=== PATIENT | female | born 2000 | race Caucasian/White ===

== ENCOUNTER 2020-06-24 12:42 | Outpatient (RCR) | payer BC, SELFPAY | END 2020-09-08 11:39 | disposition home or self-care (01) | LOC: ANHDMC 12:42 | PROVIDERS: PCP Obstetrics & Gynecology; Visit Provider Obstetrics & Gynecology | DX: O24.410 Gestational diabetes mellitus in pregnancy, diet controlled (principal); Z71.89 Other specified counseling; Z3A.34 34 weeks gestation of pregnancy | CPT/HCPCS: G0108 ==

== ENCOUNTER 2020-07-27 07:43 | Outpatient (RCR) | payer BC, SELFPAY ==
[2020-07-16 10:50] VITALS: BP 124/75; PULSE 103
[2020-07-20 09:51] VITALS: BP 120/75; PULSE 104
[2020-07-23 10:07] VITALS: BP 111/74; PULSE 113
--- NOTE | ~2020-07-27 | US_ITS ---
EXAMINATION: US OB BPP wo non-stress EXAM DATE: 07/23/2020 10:31 INDICATION: Gestational diabetes. 3rd trimester. TECHNIQUE: Pelvic obstetrical transabdominal sonogram was performed by a technologist. There are mu ltiple grayscale and Doppler images available for interpretation. Comparison is made to prior examina tion from 07/16/2020. FINDINGS: There is a single fetus identified in vertex presentation with a heart rate of 133 beats pe r minute. The placenta is located in the anterior position. There is no sonographic evidence of retr oplacental hemorrhage identified. BIOPHYSICAL PROFILE (performed by the technologist) breathing (30 sec sustained breathing in 30 minutes): 2 out of 2 movement (3 gross body movements in 30 minutes): 2 out of 2 tone (one episode of mcyydql-rpsafapou-fmqetme limb movement): 2 out of 2 Amniotic fluid pocket (2 cm): 2 out of 2 Total score: 8 out of 8 IMPRESSION: 1. Single fetus with heart rate of 133 bpm. 2. Normal biophysical profile score of 8 out of 8. Reviewed, dictated and finalized at location A. R
--- NOTE | ~2020-07-27 | US_ITS ---
EXAMINATION: US OB BPP wo non-stress DATE: 07/16/2020 10:41 INDICATION: Gestational diabetes. Third trimester. TECHNIQUE: Real-time pelvic ultrasound was performed. COMPARISON: None. FINDINGS: There is a single living fetus in vertex presentation. The placenta is fundal. heart rate is 1 38 beats per minute (bpm). Biophysical profile performed by the technologist: breathing (30 sec sustained breathing in 30 minutes): 2 out of 2 movement (3 gross body movements in 30 minutes): 2 out of 2 tone (one episode of twnfkas-ueubwcazo-somgste limb movement): 2 out of 2 Amniotic fluid pocket (2 cm): 2 out of 2 Total score: 8 out of 8 IMPRESSION: 1. Single living fetus in vertex presentation. 2. Biophysical profile 8 out of 8. Reviewed, dictated and finalized at location A. K STRIKER
[2020-07-27 08:21] VITALS: BP 119/65; PULSE 96
== END 2020-07-30 07:38 | disposition home or self-care (01) ==
LOC: ANHOBOP 07:43
PROVIDERS: Visit Provider Obstetrics & Gynecology
DX: O24.419 Gestational diabetes mellitus in pregnancy, unspecified control (principal); Z3A.37 37 weeks gestation of pregnancy; Z3A.38 38 weeks gestation of pregnancy; Z3A.39 39 weeks gestation of pregnancy
CPT/HCPCS: 59025; 76819

== ENCOUNTER 2020-07-28 15:58 | Inpatient (IN) | payer BC, SELFPAY ==
--- OUTSIDE RECORDS SUMMARY | 2020-07-28 16:04 | XMS_ITS | Encounter Summary ---
:2000 Author Reason for Visit return OB visit Assessment and Plan 1. Gestational diabetes mellitus ? cervical ripening and ragini ction of labor (SURG) Discussion Note: None recorded.Patient educational handouts: No information available. Plan of Care Reminders Provider Appointments None ? ? recorded. Lab None ? ? recorded. Referral None ? ? recorded. Procedures None ? ? recorded. Surgeries Cervical [facility] Ripening and Induction 07/27/2020 [facility] (One Call of Labor (SURG) Scheduling) Imaging None ? ? recorded. Medications Name Start Date ? ? OneTouch Delica Plus Lancet 33 gauge ? USE DIRECTED TO TEST BLOOD SUGARS TID OneTouch Ultra Blue Test Strip ? USE DIRECTED TO TEST THREE TIMES DAILY OneTouch Ultra2 Meter ? USE UTD OneTouch UltraSoft Lancets ? UTD TEST BLOOD SUGARS TID Prescription - Prior Authorization Request ? USE DIRECTED Notes: otc / tums prn/ p epcid Medications Administered None recorded. Vitals Weight Blood Pressure 210.8 lbs 118/78 mm[Hg] Results Lab Results None recorded. Allergies Code Code System Name Reaction Severity Onset
--- OUTSIDE RECORDS SUMMARY | 2020-07-28 16:04 | XMS_ITS | Encounter Summary ---
:2000 Author Reason for Visit return OB visit Assessment and Plan 1. Routine care ? streptococcus group B, cul ture, unspecified specimen Discussion Note: None recorded.Patient educational handouts: No information available. Plan of Care Reminders Provider Appointments None recorded. ? ? Lab Streptococcus [facility] Group B, Culture, 07/02/2020 [facility] (Lab) Unspecified Specimen Referral None recorded. ? ? Procedures None recorded. ? ? Surgeries None recorded. ? ? Imaging None recorded. ? ? Medications Name Start Date ? ? OneTouch [...] p epcid Medications Administered None recorded. Vitals Height Weight BMI Blood Pressure 5 ft 2 in 207 lbs 37.9 kg/m2 128/80 mm[Hg] Results Lab Results None recorded. Allergies
--- OUTSIDE RECORDS SUMMARY | 2020-07-28 16:04 | XMS_ITS | Encounter Summary ---
:2000 Author Reason for Visit return OB visit Assessment and Plan 1. Routine care Discussion Note: None recorded.Patient educational handouts: No information available. Plan of Care Reminders Provider Appointments None ? ? recorded. Lab None ? ? recorded. Referral None ? ? recorded. Procedures None ? ? recorded. Surgeries None ? ? recorded. Imaging None ? ? recorded. Medications Name [...] Administered None recorded. Vitals Weight Blood Pressure 202.5 lbs 118/72 mm[Hg] Results Lab Results None recorded. Allergies Code Code System Name Reaction Severity Onset NKDA ? ? ? Notes: Omicef - hives - nm Problems Name Sta
--- OUTSIDE RECORDS SUMMARY | 2020-07-28 16:04 | XMS_ITS | Encounter Summary ---
:2000 Author Reason for Visit return OB visit Assessment and Plan 1. Gestational diabetes mellitus ? non-stress test ? US, obstetric, biophysical profile Discussion Note: None recorded.Patient educational handouts: No information available. Plan of Care Reminders Provider Appointments None recorded. ? ? Lab None recorded. ? ? Referral None recorded. ? ? Procedures None recorded. ? ? Surgeries None recorded. ? ? Imaging Non-stress [place] Test 07/15/2020 Imaging Center ? US, Obstetric, [facility] Biophysical Profile 07/15/2020 Imaging [facility] er Medications Name Start Date ? ? OneTouch [...] Medications Administered None recorded. Vitals Height Weight Blood Pressure 5 ft 2 in
--- OUTSIDE RECORDS SUMMARY | 2020-07-28 16:04 | XMS_ITS | Encounter Summary ---
:2000 Author Reason for Visit return OB visit Assessment and Plan 1. Gestational diabetes mellitus ? US, obstetric, follow-up Discussion Note: None recorded.Patient educational handouts: No information available. Plan of Care Reminders Provider Appointments None ? ? recorded. Lab None ? ? recorded. Referral None ? ? recorded. Procedures None ? ? recorded. Surgeries None ? ? recorded. Imaging US, 06/18/2020 [facility] Obstetric, [facility] (One Ca ll Follow-up Scheduling) Medications Name Start Date ? ? OneTouch [...] Weight Blood Pressure 5 ft 2 in 208 lbs 114/70 mm[Hg] Results Lab Results None recorded. Allergies Code Code System Name Reaction Severity Onset
--- OUTSIDE RECORDS SUMMARY | 2020-07-28 16:04 | XMS_ITS | Encounter Summary ---
:2000 Author Reason for Visit return OB visit Assessment and Plan 1. Routine care ? glucose tolerance test, ge stational, 1-hour - nonfasting OB ? HIV (1+2) Ab screen, serum ? hemoglobin + hematocrit, b lood Discussion Note: None recorded.Patient educational handouts: No information available. Plan of Care Reminders Provider Appointments None recorded. ? ? Lab Glucose [place] [facility] Tolerance Test, 05/14/2020 [facility] ( Lab) Gestational, 1-Hour ? HIV (1+2) Ab [facility] Screen, Serum 05/14/2020 [facility] ( Lab) ? Hemoglobin + [facility] Hematocrit, Blood 05/14/2020 [facility] (Lab) Referral None recorded. ? ? Procedures None recorded. ? ? Surgeries None recorded. ? ? Imaging None recorded. ? ? Medications Name Start Date ? ? OneTouch Delica Plus Lancet 33 gauge ? USE DIRECTED TO TEST BLOOD SUGARS TID OneTouch Ultra Blue Test Strip ? USE DIRECTED TO TEST THREE TIMES DAILY OneTouch Ultra2 Meter ? USE UTD OneTo
--- OUTSIDE RECORDS SUMMARY | 2020-07-28 16:04 | XMS_ITS | Encounter Summary ---
:2000 Author Reason for Visit return OB visit Assessment and Plan 1. Gestational diabetes mellitus Discussion Note: None recorded.Patient educational handouts: No [...] Weight Blood Pressure 5 ft 2 in 210 lbs 132/84 mm[Hg] Results Lab Results None recorded. Allergies Code Code System Name Reaction Severity Onset NKDA ? ? ? Notes: Omicef - hives - nm Problems
--- OUTSIDE RECORDS SUMMARY | 2020-07-28 16:04 | XMS_ITS ---
:2000 Author Care Team Providers Name Role Phone Saad Hawthorne Primary Care Provider Unavailable Allergies Code Code System Name Reaction Severity Status Onset NKDA ? Notes: Omicef - hives - nm Medications Name Status Start Date Stop Date ? ? OneTouch Delica Plus Lancet 33 gauge Active ? Not available USE DIRECTED TO TEST BLOOD SUGARS TID OneTouch Ultra Blue Test Strip Active ? N ot available USE DIRECTED TO TEST THREE TIMES DAILY OneTouch Ultra2 Meter Active ? Not availa ble USE UTD OneTouch UltraSoft Lancets Active ? Not a vailable Notes: otc / tums prn/ p epcid Problems Name Status Onset Date Source ? Active 01/07/2020 ? Procedures Date Name Performed by ? 01/07/2020 US, Obstetric, Transvaginal [facility] (One Call Scheduling) [address], [place] [address] ([address]) 03/02/2020 US, Obstetric, Maternal [facility] (One Call Scheduling) Evaluation + Anatomy [address], [place] [address] ([address]) 06/18/2020 US, Obstetric, Follow-up [facility] (One Call Scheduling) [address], [place] [address] ([address])
[2020-07-28 16:28] VITALS: BP 104/48; PULSE 129
[2020-07-28 16:30] VITALS: BP 109/61; PULSE 125
[2020-07-28 16:35] VITALS: BMI 37.7
[2020-07-28 17:10] VITALS: TEMP 36.7
[2020-07-28] MEDS: DINOPROSTONE 10 MG VAG INSERT VAGINAL (17:11)
[2020-07-28 17:26] LABS: Basophils Percent Auto 0.2 % (0.2-1.2); Eosinophils Absolute Auto 0.1 K/mm3 (0-0.3); Eosinophils Percent Auto 0.7 % (0-4.4); Hematocrit 33.8 % (37.0-47.0); Hemoglobin 11.2 g/dL (12.0-15.0); Immature Granulocyte Absolute 0.05 K/mm3 (0.00-0.031); Immature Granulocyte Percent A 0.4 % (0-0.5); Lymphocytes Absolute Auto 1.35 K/mm3 (0.9-3.2); Mean Corpuscular HGB Conc 33.1 g/dl (32-36); Mean Corpuscular Volume 84.5 fl (80-100); Mean Platelet Volume 10.2 fl (7.4-10.4); Monocytes Absolute Auto 0.6 K/mm3 (0.1-0.6); Monocytes Percent Auto 5.1 % (2.6-8.5); Neutrophils Absolute Auto 10.2 K/mm3 (1.3-6.7); Neutrophils Percent Auto 82.6 % (45.5-73.1); Platelet Count Result 271 k/mm3 (150-375); Red Cell Distribution Width 15.5 % (11.5-14.5); White Blood Count 12.3 K/mm3 (4.5-10.0)
[2020-07-28 17:37] LABS: Glucose 89 mg/dL (65-105)
[2020-07-28 17:48] VITALS: BP 121/79; PULSE 101
--- NOTE | 2020-07-28 20:59 | PM.IMHP ---
H&P: HPI History of Present Illness Date/Time: 07/28/20 20:59 Chief Complaint: IOL for GDM Narrative: Ana Falk is a 20 yo @ 39.4wks admitted for IOL due to A1GDM. Her sugars have been decently well controlled until recently been having random sugars in the 170's. She reports good movement. No LOF, VB. She has had regular care. complicated by: - A1GDM; normal growth (EFW 6lb 13oz on 07/14/20) - Varicella and CMV non-immune Review of Systems Constitutional: Constitutional: Denies fever(s) Eyes: Eyes: Denies blurry vision Cardiovascular: Cardiovascular: Denies chest pain and Denies palpitations Respiratory: Respiratory: Denies cough and Denies dyspnea Gastrointestinal: Gastrointestinal: Denies nausea and Denies vomiting Genitourinary: Genitourinary: Denies vaginal discharge Neurologic: Denies headache(s) Psychiatric: Psychiatric: Denies anxiety and Denies depression [facility] Family History Family History Grandparent Epilepsy Diabetes mellitus Heart disease Lung cancer Chronic obstructive pulmonary disease Father Alcohol abuse Social History Social History Smoking status: Never smoker Additional smoking assessment comments: mother and brother smoke inside the house Substance use: never Spiritual care concerns: No Meds Home Medications and Allergies Home Medications Medication Instructions Recorded Confirmed Type prenat.vits,deanne,[id number] 1 tablet PO DAILY 06/30/20 07/28/20 History [ #2] Allergies Allergy/AdvReac Type Severity Reaction Status Date / Time cefdinir Allergy RASH Verified 07/28/20 17:12 Vital Signs Vital Signs - 24 hr 07/28/20 16:28 07/28/20 16:30 07/28/20 17:10 Temperature 36.7 C Pulse Rate 129 H 125 H Blood Pressure 104/48 L 109/61 07/28/20 17:48 Temperature Pulse Rate 101 H Blood Pressure 121/79 Exam Const: General: cooperative, healthy appearing and comfortable Resp: Effort & Inspection: normal respiratory effort and able to speak in complete sentences Cardio: Rate: regular rate GI: GI Palp: No abdominal tenderness and Yes Soft to palpation : Other: FHT's: 130's/ mod cristy/ + accels/ no decels - cat 1 Hiram: irritability Membranes: intact; GBS neg Presentation: cephalic Cervix: 1/thick/high Skin: General skin exam: normal color Neuro: General: patient oriented x3 Psych: Appearance: grossly normal Affect: normal affect Attitude: cooperative H&P: Results Labs Labs: Short CBC 07/28/20 Range/Units 16:24 WBC 12.3 H (4.5-10.0) K/mm3 Hgb 11.2 L (12.0-15.0) g/dL Hct 33.8 L (37.0-47.0) % Plt Count 271 (150-375) k/mm3 BMP 07/28/20 17:17 Glucose 89 Assessment and Plan Assessment and plan (1) Gestational diabetes mellitus (GDM) affecting first : Code(s): O24.419 - Gestational diabetes mellitus in , unspecified control Status: Acute (2) Encounter for induction of labor: Code(s): Z34.90 - Encounter for supervision of normal , unspecified, unspecified trimester Status: Acute Additional Plan - Admit for cervidil induction overnight, plan for AROM/pitocin tomorrow - Intermittent monitoring w/ cervidil; category 1 and reassuring, continuous of ROM/pitocin - FS per protocol - Anesthesia consult PRN pain - Labs/US reviewed; GBS negative
--- NOTE | 2020-07-28 21:15 | WPDHPUPDATE1 ---
History and Physical Update Update Date/Time: 07/28/20 21:15 History and Physical has been reviewed, including an updated exam of the patient. There are NO changes in the patient's condition. Risks, benefits, and alternatives have been discussed and questions answered. Patient agrees to proceed with procedure.
[2020-07-28 21:20] VITALS: TEMP 37.3
[2020-07-29] VITALS (131 sets, daily range): BP systolic 86–139; BP diastolic 49–99; PULSE 81–165; RESP 20; TEMP 36.6–37.3; O2SAT 97–100
[2020-07-29 02:20] LABS: Glucose Point of Care 90 (65-105)
[2020-07-29] MEDS: LACTATED RINGERS 1,000 ML 125 ML IV CONT ×2 (05:35→15:55)
[2020-07-29] MEDS: OXYTOCIN 30 UNITS/NS 500 ML 30 UNITS/500 ML BAG 6 UNITS IV CONT (05:46)
[2020-07-29 05:55] LABS: Glucose Point of Care 79 (65-105)
[2020-07-29 09:50] LABS: Rapid Plasma Reagin Non-Reactive (NonReactive)
[2020-07-29 10:12] LABS: Glucose Point of Care 81 (65-105)
--- NOTE | 2020-07-29 12:37 | PM.OBPNLAB ---
Pain Control Date/time seen: 07/29/20 12:37 Pain control: tolerating well Pelvic Exam Dilation (cm): 3 (.5) Effacement (%): 70 station: -2 Amniotic membrane status: Ruptured (AROM, thick mec @ 1230) Contractions Monitor mode: External Contraction frequency: 2 Contraction pattern: Regular Contraction intensity: Moderate Status status: Category ll Comments: 150's/ mod cristy/ + accels/ 2 prolonged decels noted to 120's Assessment and Plan Pitocin rate (mU/min): 10 Assessment: induction ongoing Plan: continuous present management Comments: - IOL; latent labor, making good progress, now 3.5/70/-2 - Decel noted after ROM; spontaneous resolution; thick mec noted -- monitoring decels closely; pt continues to have good variability - Cesario regularly - Epidural PRN pain - Sugars normal 70-90's
[2020-07-29] MEDS: fentaNYL CITRATE INJ (*CRX) 100 MCG/2 ML VIAL 50 MCG IV PUSH ×2 (13:09→14:16)
--- NOTE | 2020-07-29 13:10 | WPDANESEPP ---
Anes - Eval Pre Procedure Procedure: Labor epidural Date/Time: 07/29/20 13:10 Surgeon: lucita Preop Diagnosis: Abd pain with contractions Pre Op Diagnosis: IOL Patient Data Age: 20 Gender: F Height: 5 ft 2 in Weight: 93.5 kg Last Vital Signs Temp 98.2 F 07/29/20 10:00 Pulse 110 H 07/29/20 12:30 BP 113/99 H 07/29/20 12:30 Allergies Allergy/AdvReac Type Severity Reaction Status Date / Time cefdinir Allergy RASH Verified 07/28/20 17:12 Home Medications Medication Instructions Recorded Confirmed Type prenat.vits,deanne,[id number]-[id number] 1 tablet PO DAILY 06/30/20 07/28/20 History [ #2] Laboratory Tests 07/28/20 07/28/20 07/28/20 16:24 16:24 16:24 WBC 12.3 K/mm3 H K/mm3 (4.5-10.0) RBC 4.00 M/mm3 L M/mm3 (4.2-5.4) Hgb 11.2 g/dL L g/dL (12.0-15.0) Hct 33.8 % L % (37.0-47.0) MCV 84.5 fl fl (80-100) MCH 28.0 pg pg (26-34) MCHC 33.1 g/dl g/dl (32-36) RDW 15.5 % H % (11.5-14.5) Plt Count 271 k/mm3 k/mm3 (150-375) MPV 10.2 fl fl (7.4-10.4) Immature Gran % (Auto) 0.4 % % (0-0.5) Neut % (Auto) 82.6 % H % (45.5-73.1) Lymph % (Auto) 11.0 % L % (18.3-44.2) [place] % (Auto) 5.1 % % (2.6-8.5) Eos % (Auto) 0.7 % % (0-4.4) Baso % (Auto) 0.2 % % (0.2-1.2) Lymph # (Auto) 1.35 K/mm3 K/mm3 (0.9-3.2) [place] # (Auto) 0.6 K/mm3 K/mm3 (0.1-0.6) Eos # (Auto) 0.1 K/mm3 K/mm3 (0-0.3) Baso # (Auto) 0.0 K/mm3 K/mm3 (0.0-0.1) Abs Immat Gran (auto) 0.05 K/mm3 H K/mm3 (0.00-0.031) Absolute Neuts (auto) 10.2 K/mm3 H K/mm3 (1.3-6.7) Absolute Nucleated RBC 0.0 K/mm3 K/mm3 (0.0-0.012) Nucleated RBC % 0.0 % % (0.0-0.2) Glucose POC Capillary Glucose RPR Non-reactive (NonReactive) Blood Type O Positive Antibody Screen Negative 07/28/20 07/28/20 07/29/20 17:17 21:21 05:49 WBC RBC Hgb Hct MCV MCH MCHC RDW Plt Count MPV Immature Gran % (Auto) Neut % (Auto) Lymph % (Auto) [place] % (Auto) Eos % (Auto) Baso % (Auto) Lymph # (Auto) [place] # (Auto) Eos # (Auto) Baso # (Auto) Abs Immat Gran (auto) Absolute Neuts (auto) Absolute Nucleated RBC Nucleated RBC % Glucose 89 mg/dL mg/dL (65-105) POC Capillary Glucose 90 mg/dl mg/dl 79 mg/dl mg/dl (65-105) (65-105) RPR Blood Type Antibody Screen 07/29/20 10:04 WBC RBC Hgb Hct MCV MCH MCHC RDW Plt Count MPV Immature Gran % (Auto) Neut % (Auto) Lymph % (Auto) [place] % (Auto) Eos % (Auto) Baso % (Auto) Lymph # (Auto) [place] # (Auto) Eos # (Auto) Baso # (Auto) Abs Immat Gran (auto) Absolute Neuts (auto) Absolute Nucleated RBC Nucleated RBC % Glucose POC Capillary Glucose 81 mg/dl mg/dl (65-105) RPR Blood Type Antibody Screen Patient hx anesthesia problems: none Family hx anesthesia problems: none PMFSH Past Medical History Medical History Gestational diabetes mellitus (GDM) affecting first and not yet delivered Family History Family History Grandparent Epilepsy Diabetes mellitus Heart disease Lung cancer Chronic obstructive pulmonary disease Father Alcohol abuse Socia
--- NOTE | 2020-07-29 15:55 | WPDANESEPPF ---
Anes - Initial Pre Proc Eval Date/Time: 07/29/20 15:55 Surgeon: Saad Hawthorne MD Pre Op Diagnosis: IOL Patient Data Age: 20 Gender: F Height: 1.57 m Weight: 93.5 kg Last Vital Signs Temp 36.8 C 07/29/20 14:26 Pulse 150 H 07/29/20 15:30 BP 118/88 07/29/20 15:30 Allergies Allergy/AdvReac Type Severity Reaction Status Date / Time cefdinir Allergy RASH Verified 07/28/20 17:12 Home Medications Medication Instructions Recorded Confirmed Type prenat.vits,deanne,rpk-knhb-[id number] 1 tablet PO DAILY 06/30/20 07/28/20 History [ #2] Laboratory Tests 07/28/20 07/28/20 07/28/20 16:24 16:24 16:24 WBC 12.3 K/mm3 H K/mm3 (4.5-10.0) RBC 4.00 M/mm3 L M/mm3 (4.2-5.4) Hgb 11.2 g/dL L g/dL (12.0-15.0) Hct 33.8 % L % (37.0-47.0) MCV 84.5 fl fl (80-100) MCH 28.0 pg pg (26-34) MCHC 33.1 g/dl g/dl (32-36) RDW 15.5 % H % (11.5-14.5) Plt Count 271 k/mm3 k/mm3 (150-375) MPV 10.2 fl fl (7.4-10.4) Immature Gran % (Auto) 0.4 % % (0-0.5) Neut % (Auto) 82.6 % H % (45.5-73.1) Lymph % (Auto) 11.0 % L % (18.3-44.2) [place] % (Auto) 5.1 % % (2.6-8.5) Eos % (Auto) 0.7 % % (0-4.4) Baso % (Auto) 0.2 % % (0.2-1.2) Lymph # (Auto) 1.35 K/mm3 K/mm3 (0.9-3.2) [place] # (Auto) 0.6 K/mm3 K/mm3 (0.1-0.6) Eos # (Auto) 0.1 K/mm3 K/mm3 (0-0.3) Baso # (Auto) 0.0 K/mm3 K/mm3 (0.0-0.1) Abs Immat Gran (auto) 0.05 K/mm3 H K/mm3 (0.00-0.031) Absolute Neuts (auto) 10.2 K/mm3 H K/mm3 (1.3-6.7) Absolute Nucleated RBC 0.0 K/mm3 K/mm3 (0.0-0.012) Nucleated RBC % 0.0 % % (0.0-0.2) Glucose POC Capillary Glucose RPR Non-reactive (NonReactive) Blood Type O Positive Antibody Screen Negative 07/28/20 07/28/20 07/29/20 17:17 21:21 05:49 WBC RBC Hgb Hct MCV MCH MCHC RDW Plt Count MPV Immature Gran % (Auto) Neut % (Auto) Lymph % (Auto) [place] % (Auto) Eos % (Auto) Baso % (Auto) Lymph # (Auto) [place] # (Auto) Eos # (Auto) Baso # (Auto) Abs Immat Gran (auto) Absolute Neuts (auto) Absolute Nucleated RBC Nucleated RBC % Glucose 89 mg/dL mg/dL (65-105) POC Capillary Glucose 90 mg/dl mg/dl 79 mg/dl mg/dl (65-105) (65-105) RPR Blood Type Antibody Screen 07/29/20 10:04 WBC RBC Hgb Hct MCV MCH MCHC RDW Plt Count MPV Immature Gran % (Auto) Neut % (Auto) Lymph % (Auto) [place] % (Auto) Eos % (Auto) Baso % (Auto) Lymph # (Auto) [place] # (Auto) Eos # (Auto) Baso # (Auto) Abs Immat Gran (auto) Absolute Neuts (auto) Absolute Nucleated RBC Nucleated RBC % Glucose POC Capillary Glucose 81 mg/dl mg/dl (65-105) RPR Blood Type Antibody Screen Patient hx anesthesia problems: none Family hx anesthesia problems: none PMFSH Past Medical History Medical History Gestational diabetes mellitus (GDM) affecting first and not yet delivered Family History Family History Grandparent Epilepsy Diabetes mellitus Heart disease Lung cancer Chronic obstructive pulmonary disease Father Alcohol abuse Social History Social History (Reviewed 07/29/20 @ 13:11 by Mary Beth
[2020-07-29] MEDS: SODIUM CHLORIDE 0.9% IV 1,000 ML 150 ML I-UTERINE (16:23)
[2020-07-29] MEDS: SODIUM CHLORIDE 0.9% IV 300 ML 999 ML I-UTERINE (16:23)
[2020-07-29 16:27] LABS: Glucose Point of Care 83 (65-105)
--- NOTE | 2020-07-29 17:47 | PM.OBPNLAB ---
Pain Control Date/time seen: 07/29/20 17:47 Pain control: epidural Pelvic Exam Dilation (cm): 5 (.5) Effacement (%): 90 station: -2 Amniotic membrane status: Ruptured (AROM, thick mec @ 1230) Contractions Monitor mode: Internal Contraction frequency: 2 Contraction pattern: Regular Contraction intensity: Moderate Intrauterine tone measurement: 200 Status status: Category ll Comments: 125's/mod cristy/ + accels/ some variables/lates but not recurrent - cat 2; overall reassuring Assessment and Plan Pitocin rate (mU/min): 10 Assessment: induction ongoing Plan: continuous present management Comments: - latent labor; continuing to make cervical change; jesus adequately on 10mU-- continue present management - decels noted but not recurrent; variability and accels noted-- continuing to monitor closely
[2020-07-29 19:42] LABS: Glucose Point of Care 66 (65-105)
--- NOTE | 2020-07-29 21:14 | PM.OBPRVD ---
OB - Delivery Note Procedure Delivery date: 07/29/20 events: Labor Induction (gestational diabetes) and Meconium Stained Fluid Intrapartal events: Deceleration Induction method: per cervidil protocol Delivery augmentation: rupture of membranes and pitocin Delivery monitor: external FHT and internal uterine Route of delivery: Laceration Description: Perineal - 2nd Degree Delivery repair: vicryl Specimen: Yes (placenta to pathology) Quantitative Blood Loss (ml): 400 Anesthesia type: Epidural Disposition: floor Narrative: Patient rapidly progressed to complete dilation. After the 2nd contraction of pushing a prolonged decel was noted to the 80s for approximately 4-5 minutes. It resolved once she was placed on the her left side and was given a pushing break. With normal heart tones and good maternal effort, she pushed for approximately 3 more contractions and delivered the head over intact perineum. No nuchal cord was palpated. The shoulders and body delivered without complications. The was placed skin to skin and the umbilical cord was immediately clamped and cut. The infant was handed off to the awaiting pediatric team due to the thick meconium noted on rupture membranes. The had spontaneous cry but had significant fluid in his mouth and nose. A segment of the cord was then collected for cord gases and the remaining cord blood was collected for typing. With Pitocin running and gentle downward traction on the umbilical cord the placenta delivered without complications. Bimanual massage was performed and good uterine tone was noted. The cervix, vagina, and perineum were examined and a second-degree perineal laceration was noted. The laceration was repaired in the normal fashion using 2 0 Vicryl and good hemostasis was noted. Minimal bleeding and good uterine tone were noted. A rectal exam was performed and found to be normal. Sponge, lap, instrument, needle counts were correct at the end procedure. Mom tolerated procedure well and was left in the birthing suite in a stable condition. [place] Baby Date of : 07/29/20 Time of : 20:38 Weeks of gestation at delivery: 39 Infant gender: Male Weight (pounds): 7 Weight (ounces): 2 presentation: vertex position: Left Occiput Anterior Placenta delivery description: Expressed cord vessel description: 3 Vessels score one minute: 7 score five minutes: 9
[2020-07-29] MEDS: OXYTOCIN 30 UNITS/NS 500 ML 30 UNITS/500 ML BAG 125 UNITS IV CONT (21:22)
[2020-07-29] MEDS: BENZOCAINE 20% AER SPR (*SP) 56 GM CAN 1 SPRAY TOPICAL (23:12)
[2020-07-29] MEDS: IBUPROFEN 600 MG TABLET PO (23:12)
[2020-07-29] MEDS: WITCH HAZEL 40 PADS 1 PAD TOPICAL (23:12)
[2020-07-30 00:05] VITALS: BP 116/76; PULSE 121; RESP 18; TEMP 37.2; O2SAT 97
--- NOTE | 2020-07-30 00:19 | OBPPTRN ---
Patient transferred to post room # 292 via wheelchair. Support person present. in level 11 nursery at this time. Oriented to unit, room, information board, rooming in, admission packet and security measures. Patient verbalizes understanding.
[2020-07-30] MEDS: ACETAMINOPHEN 325 MG TABLET 650 MG PO ×3 (03:05→17:49)
[2020-07-30 04:50] LABS: Hematocrit 24.6 % (37.0-47.0); Hemoglobin 8.2 g/dL (12.0-15.0)
[2020-07-30] MEDS: IBUPROFEN 600 MG TABLET PO ×2 (05:13→14:43)
[2020-07-30 08:55] VITALS: BP 110/46; PULSE 94; RESP 18; TEMP 36.6; O2SAT 100
--- NOTE | 2020-07-30 09:32 | WPDANLDPN2 ---
Anes-Prog Note L&D Date/Time: 07/30/20 09:32 Comfortable throughout: labor and delivery Neuraxial method: epidural Epidural/Spinal procedure site: clean & non-tender Neuro status: Neuro function grossly intact. Cardiovascular status: normal Respiratory status: normal Airway patency: baseline Mental status: baseline Post-Op hydration status: normal Vital Signs: Last Vital Signs Temp 37.2 C 07/30/20 00:05 Pulse 121 H 07/30/20 00:05 Resp 18 07/30/20 00:05 BP 116/76 07/30/20 00:05 Pulse Ox 97 07/30/20 00:05 Pain score (VAS): 0 I/O: Intake & Output 07/29/20 07/30/20 07/30/20 23:59 07:59 15:59 Output Total 400 132 Balance -400 -132 Post-procedural complaints: none Patient feedback: Patient satisfied with anesthetic care.
[2020-07-30] MEDS: MULTIVIT/MIN/PREN/FOL AC/IRON TABLET 1 TAB PO (09:36)
[2020-07-30] MEDS: POLYSACCHARIDE IRON COMPLEX 150 MG CAPSULE PO ×2 (09:36→17:49)
[2020-07-30] MEDS: DOCUSATE SODIUM 100 MG CAPSULE PO ×2 (09:36→17:49)
--- NOTE | 2020-07-30 09:51 | PC.NURSE ---
Consulted with patient, reviewed feeding cues, frequencies, duration of feedings, feeding elimination flow sheet, and signs of adequate intake. Demonstrated stimulation techniques to wake for feeding. Assisted with to breast. Reviewed positioning/alignment, holding breast and asymmetrical latch on. was able to latch correctly using nipple shield. Infant nursed eagerly, with steady draws and frequent swallowing noted. Reviewed signs of a correct latch, effective nursing and suck swallow ratio. was able to maintain latch without discomfort to mother. Nipple care reviewed. Instructed mother to call out for RN assistance if she is unable to latch for feeding or she has discomfort with nursing. Instructed feeding should be initiated three hours from start of last feeding or if feeding cues are noted before. Mother voiced understanding of information shared. Nipple shield provided to mother prior to my assessment. Reviewed Instructions on application and cleaning of shield. Discussed nipple shield precautions and possible complications. Patient able to return demonstration on proper application of shield. Discussed the need to initiate pumping if continues to nurse with the shield. Patient verbalizes understanding. Breast pump provided due to patient's choice. Instructions given on breast pump care and usage, pumping schedule, nipple care, and collection and storage of breast milk. Encouraged [id number], breast massage and manual expression to stimulate supply. Assessed patient for correct flange size, placement and draw. Patient verbalizes and demonstrates understanding of instructions.
--- NOTE | 2020-07-30 14:05 | P.PNOB_ITS ---
OB - PN: Subj Subjective Date/time seen: 07/30/20 14:05 Ana reports doing well today. Her pain is controlled with PO meds. She is tolerating regular diet. She is ambulating w/o s/sx of anemia. She has voided an d passed gas. She is breast feeding. She would like her son to get circumcised. She would like to go home tonight. She denies CP, SOB, EM, vision changes, N/V, dizziness, palpitation, fevers, or chills. OB - PN: Obj Data Labs CBC & Chem 7: 07/30/20 04:05 Labs: Laboratory Results - last 24 hr 07/29/20 07/29/20 07/30/20 16:01 19:38 04:05 Hgb 8.2 L D Hct 24.6 L POC Capillary Glucose 83 66 OB - PN A/P Assessment and Plan (1) Normal vaginal delivery of first : Code(s): O80 - Encounter for full-term uncomplicated delivery Status: Acute (2) Anemia due to acute blood loss: Code(s): D62 - Acute posthemorrhagic anemia Status: Acute Plan day: 1 Plan: routine care Comments: - Will repeat h/h today - plan for discharge home this evening - ER return precautions discussed: HTN, bleeding, fever, n/v/abd pain - Pelvic rest; take meds as prescribed Time Spent With Patient Time: Total time spent is greater than 50% in coordination of care (as documented) at patient's floor/unit and/or counseling patient: Time with patient: less than 15 minutes Review of Systems Review of Systems: All systems reviewed & are unremarkable except as noted in HPI and below (HPI) Exam Const: General: cooperative, healthy appearing, comfortable and no acute distress Resp: Effort & Inspection: normal respiratory effort and able to speak in complete sentences Auscultation: clear to auscultation bilaterally Cardio: Rate: regular rate GI: Inspection: non-distended GI Palp: No abdominal tenderness and Yes Soft to palpation Auscultation: normal bowel sounds : Other: fundus firm below umbilicus Skin: General skin exam: normal color Neuro: General: patient oriented x3 Psych: Appearance: grossly normal Affect: normal affect Attitude: cooperative
[2020-07-30 14:51] LABS: Hematocrit 22.4 % (37.0-47.0); Hemoglobin 7.4 g/dL (12.0-15.0)
[2020-07-30 20:00] VITALS: BP 126/77; PULSE 104; RESP 18; TEMP 36.6; O2SAT 100
[2020-07-31] VITALS: BP 122/81; PULSE 110; O2SAT 100
[2020-07-31] MEDS: ACETAMINOPHEN 325 MG TABLET 650 MG PO (01:16)
[2020-07-31] MEDS: IBUPROFEN 600 MG TABLET PO ×2 (01:16→09:31)
[2020-07-31 05:01] LABS: Hematocrit 23.1 % (37.0-47.0); Hemoglobin 7.4 g/dL (12.0-15.0)
[2020-07-31 08:40] VITALS: BP 109/74; PULSE 109; RESP 18; TEMP 36.6
--- NOTE | 2020-07-31 09:30 | PC.NURSE ---
Patient viewed the discharge video Mother & Baby Care, The First Two Weeks . Patient was given the opportunity and encouraged to ask questions. Patient verbalized understanding of information shared and has been given the mother/baby guide for home reference.
[2020-07-31] MEDS: POLYSACCHARIDE IRON COMPLEX 150 MG CAPSULE PO (09:31)
[2020-07-31] MEDS: MULTIVIT/MIN/PREN/FOL AC/IRON TABLET 1 TAB PO (09:31)
[2020-07-31] MEDS: DOCUSATE SODIUM 100 MG CAPSULE PO (09:31)
[2020-08-03 11:14] VITALS: BP 119/78; PULSE 116; RESP 14; TEMP 37.1
--- NOTE | 2020-08-04 12:44 | PM.OBDSVD ---
DS: Admitting Diagnosis Admitting Diagnosis Admitting Diagnosis: IOL for gestational diabetes DS: Discharge Diagnosis Discharge Diagnosis (1) Normal vaginal delivery of first : Code(s): O80 - Encounter for full-term uncomplicated delivery Status: Acute (2) Anemia due to acute blood loss: Code(s): D62 - Acute posthemorrhagic anemia Status: Acute OB - DS: Summary OB Procedures : NST and Ultrasound OB Procedures Intrapartum: Spontaneous Vag Delivery OB Procedures: : None Peripartum Data Delivery Method: Natural Vaginal Laceration Description: Perineal - 2nd Degree Episiotomy description: None complications: perineal laceration 1: Gender: Male Disposition of : home Status at Discharge Functional status at discharge: independent ambulation Overall status at discharge: patient is back to baseline Time Spent with Patient Time attestation: Total time spent providing and/or coordinating discharge services: Exam Const: General: cooperative, healthy appearing, comfortable and no acute distress Resp: Effort & Inspection: normal respiratory effort Auscultation: clear to auscultation bilaterally Cardio: Rate: regular rate GI: Inspection: normal to inspection GI Palp: Yes Soft to palpation and No Tenderness to palpation present (GI) Auscultation: normal bowel sounds : Other: fundus firm below umbilicus Skin: General skin exam: normal color Neuro: General: patient oriented x3 Psych: Appearance: grossly normal Affect: normal affect Attitude: cooperative DS: Data Data Completed and Pending Completed studies during hospitalization: Pending at discharge 07/29/20 20:46 Surgical [PTH] Routine Discharge Plan Discharge Attending physician on discharge: Vidya Schmidt Consulting providers: [facility] Discharging Clinician: Vidya Schmidt Anticipated Discharge Date/Time: 07/30/20 22:00 Patient Disposition: Home, Self-Care Activity: pelvic rest Diet: regular Discharge Instructions: Education: Mom and Baby Guide, discharge video handout, and Preeclampsia Handout Given to: Mother Follow-Up: Call your delivering provider's office for an appointment to be seen in: 4 Weeks Mom and baby should come to the [facility] for the follow-up appointment. Appointment Date/Time: August 03, 2020 at 11:00 am What to expect at your follow-up visit: Physical Assessment Call [phone] if you are unable to keep your appointment time. BREAST CARE: * Wear a snug supportive bra. * For engorgement discomfort: Breast Feeding: * Apply warm moist washcloths * Express milk as needed to relieve engorgement * Wear loose clothing * For sore nipples: * Identify correct latch-on * Apply warm moist washcloths before and after nursing * Air dry nipples after nursing * May apply Lansinoh cream to nipples EPISIOTOMY/PERINEAL CARE: * Until bleeding stops, use your fanny bottle after urinating * Change your pad frequently throughout the day * You may take sitz baths several times a day (fill your bathtub with warm water and soak for 20 minutes.) Do NOT bathe in the water * No tub baths until seen by your physician - You may shower ACTIVITY: * Rest as much as possible. * Do not exercise or lift anything heavier than your baby (such as laundry or other children.) * Avoid stairs or driving as much as possible. * Do not put anything into the vagina. No douching, tampons, or sexual activity until seen by physician. NOTIFY PHYSICIAN IF YOU HAVE ANY QUESTIONS OR IF ANY OF THE FOLLOWING SYMPTOMS OCCUR: * If your episiotomyor stitches become red, swollen, or more painful than what you have experienced in the hospital. * If your vaginal bleeding becomes foul smelling. * If your vaginal bleeding becomes more heavy
== END 2020-07-31 13:28 | disposition home or self-care (01) | DRG 560 ==
LOC: ANHLDR 07-29 11:49 → ANHOB2 07-30 14:11 → ANHLDR 08-04 10:01 → ANHOB2 08-04 10:01
PROVIDERS: Obstetrics & Gynecology; Admitting Provider Obstetrics & Gynecology; Visit Provider Obstetrics & Gynecology
DX: O24.429 Gestational diabetes mellitus in childbirth, unspecified control (principal); Z37.0 Single live birth; Z3A.39 39 weeks gestation of pregnancy; O36.8330 Maternal care for abnormalities of the fetal heart rate or rhythm, third trimester, not applicable or unspecified; O77.0 Labor and delivery complicated by meconium in amniotic fluid; O99.214 Obesity complicating childbirth; E66.9 Obesity, unspecified; O70.1 Second degree perineal laceration during delivery; O99.02 Anemia complicating childbirth; D62 Acute posthemorrhagic anemia
CPT/HCPCS: 36415; 82947; 85014; 85018; 85025; 86592; 86850; 86900; 86901; 88307; A9270; J2590; J2795; J3010; J7030; J7120